=== PATIENT | female | born 1960 | race Caucasian/White ===

== ENCOUNTER 2018-06-02 19:00 | Emergency (ER) | payer BC ==
[2018-06-02 19:10] VITALS: BP 149/92
--- NOTE | 2018-06-02 19:15 | UC ---
General HPI - HPI Summary HPI Summary: 57 yo female presents with fever, fatigue, and body aches for 2 days. Her son had similar symptoms and tested positive for the flu - per pt. She is concerned that she may have the flu. Has been taking tylenol with good relief of her fever. - History of Current Complaint Chief Complaint: UCRespiratory Stated Complaint: COUGH, AND SINUS CONGESTION Time Seen by Provider: 06/02/18 19:12 Hx Obtained From: Patient Onset/Duration: Sudden Onset Onset Severity: Mild Current Severity: Mild Pain Intensity: 2 - Allergy/Home Medications Allergies/Adverse Reactions: Allergies Allergy/AdvReac Type Severity Reaction Status Date / Time gluten Allergy JOINT Verified 06/02/18 19:10 PAIN, BLOATING dairy Allergy Mild Congestion Uncoded 06/02/18 19:10 Home Medications: Home Medications Acetaminophen TAB* [Tylenol TAB*] 650 mg PO ONCE PRN 06/02/18 [History Confirmed 06/02/18] Ascorbic Acid TAB* [Vitamin C TAB*] 5,000 mg PO DAILY 06/02/18 [History Confirmed 06/02/18] L.acidoph,Paracasei, B.lactis [Probiotic] 2 each PO ONCE 06/02/18 [History Confirmed 06/02/18] PMH/Surg Hx/FS Hx/Imm Hx - Additional Past Medical History Additional PMH: None - Surgical History Surgical History: Yes Surgery Procedure, Year, and Place: 1968 hernia repair - Family History Known Family History: Positive: None - Social History Occupation: Employed Full-time Lives: With Family Alcohol Use: Daily Alcohol Amount: WINE WITH DINNER Substance Use Type: None Smoking Status (MU): Never Smoked Tobacco Review of Systems All Other Systems Reviewed And Are Negative: Yes Constitutional: Positive: Fever, Fatigue, Other - Body aches Skin: Positive: Negative Eyes: Positive: Negative ENT: Positive: Negative Respiratory: Positive: Negative Cardiovascular: Positive: Negative Gastrointestinal: Positive: Negative Neurovascular: Positive: Negative Neurological: Positive: Negative Psychological: Positive: Negative Physical Exam - Summary Physical Exam Summary: GENERAL: NAD. WDWN. No pain distress. SKIN: No rashes, sores, lesions, or open wounds. HEENT: Head: AT/NC Eyes: EOM intact. Conjunctiva clear without inflammation or discharge. Ears: Hearing grossly normal. TMs intact, no bulging, erythema, or edema. Nose: Nasal mucosa pink and moist. NTTP maxillary and frontal sinus. Throat: Posterior oropharynx without exudates, erythema, or tonsillar enlargement. Uvula midline. NECK: Supple. Nontender. No lymphadenopathy. CHEST: CTAB. No r/r/w. No accessory muscle use. Breathing comfortably and in no distress. CV: RRR. Without m/r/g. Pulses intact. Cap refill <2seconds NEURO: Alert. PSYCH: Age appropriate behavior. Triage Information Reviewed: Yes Vital Signs: Initial Vital Signs Temp 100.3 F 06/02/18 19:05 Pulse 100 06/02/18 19:05 Resp 16 06/02/18 19:05 BP 149/92 06/02/18 19:05 Pulse Ox 97 06/02/18 19:05 Laboratory Tests 06/02/18 19:22 Influenza A (Rapid) Positive A Vital Signs Reviewed: Yes Course/Dx - Course Course Of Treatment: POC flu positive. Will treat with tamiflu. - Diagnoses Provider Diagnosis: Influenza Discharge - Sign-Out/Discharge Documenting (check all that apply): Patient Departure All imaging exams completed and their final reports reviewed: No Studies - Discharge Plan Condition: Stable Disposition: HOME Prescriptions: Oseltamivir CAP* [Tamiflu CAP*] 75 mg PO BID #10 cap Patient Education Materials: Influenza (DC) Referrals: Heidy Montague MD [Primary Care Provider] - Additional Instructions: If you develop a fever, shortness of breath, chest pain, new or worsening symptoms - please call your PCP or go to the ED. Your blood pressure was elevated at todays visit. Please see your primary provider within 4 weeks for recheck and re-evaluation. Continue to rest and drink plenty of fluids! May take tylenol/ibuprofen for your fever and discomfort. - Billing Disposition and Condition Condition: STABLE Disposition: Home
[2018-06-02] MEDS ORDERED: Oseltamivir CAP* 75 MG CAP PO ONE (19:34)
== END 2018-06-02 19:47 | disposition home or self-care (01) ==
LOC: UCEAST 19:00
DX: J10.1 Influenza due to other identified influenza virus with other respiratory manifestations (principal)
CPT/HCPCS: 99212; A9270-GY; G0463